=== PATIENT | female | born 2000 | race Caucasian/White ===

== ENCOUNTER 2021-03-20 17:20 | Emergency (ER) | payer OTHER ==
[~2021-03-20] VITALS: Ht 167.6 cm; Wt 95.3 kg
[2021-03-20 17:41] VITALS: BP 122/67
--- NOTE | 2021-03-20 17:48 | NUR ---
20 YEAR OLD FEMALE COMPLAINS OF WORSENING LLQ ABDOMINAL PAIN X 1 WEEK. PAIN 7/10, SHARP, RADIATING TO LEFT LOWER BACK. PT STATES NAUSEA, DENIES VOMITTING/DIARRHEA. PT DENIES PROBLEMS WITH URINATION. IN ED, VSS. ABDOMEN SOFT, NONTENDER. PT CHANGED TO GOWN. ERMD MADE AWARE OF PT STATUS. PMH - HTN NKA
[2021-03-20 18:46] LABS: BASOPHILS # (AUTO) 0.1 K/uL (0.00-0.22); BASOPHILS % (AUTO) 0.7 % (0.0-2.0); EOSINOPHILS # (AUTO) 0.2 K/uL (0-0.4); EOSINOPHILS % (AUTO) 1.7 % (0.0-4.0); HEMATOCRIT 39.6 % (36-48); LYMPHOCYTES % (AUTO) 28.1 % (20.5-51.1); MEAN CORPUSCULAR HEMOGLOBIN 31 pg (27-31); MEAN CORPUSCULAR HGB CONC 36 g/dL (33-37); MONOCYTES # (AUTO) 0.7 K/uL (0.8-1.0); MONOCYTES % (AUTO) 6.4 % (1.7-9.3); NEUTROPHILS # (AUTO) 6.7 K/uL (1.8-7.7); NEUTROPHILS % (AUTO) 63.1 % (42.2-75.2); PLATELET COUNT (AUTO) 272 K/uL (140-450); RED CELL DISTRIBUTION WIDTH 13.3 % (11.6-13.7); WHITE BLOOD COUNT (AUTO) 10.7 K/uL (4.8-10.8)
[2021-03-20 18:47] LABS: APPEARANCE,URINE CLEAR (CLEAR); BILIRUBIN,URINE NEGATIVE (NEGATIVE); BLOOD, URINE NEGATIVE (NEGATIVE); COLOR,URINE YELLOW (YELLOW); LEUKOCYTE ESTERASE ,URINE 1+ (NEGATIVE); NITRITE, URINE NEGATIVE (NEGATIVE); UGLUCOSE 3+ (NEGATIVE)
[2021-03-20 19:04] LABS: RBC,URINE 0-5 /HPF (0-5)
--- NOTE | 2021-03-20 19:04 | NUR ---
REPORT GIVEN TO HARESH WILSON. ALL CARES TRANSFERRED AT THIS TIME.
--- NOTE | 2021-03-20 19:05 | NUR ---
RECEIVED REPORT FROM ARMANDO HUTSON FOR CONTINUITY OF CARE
--- NOTE | 2021-03-20 19:07 | NUR ---
ULTRASOUND AT BEDSIDE
[2021-03-20] MEDS ORDERED: NITR100C7 PO (19:37)
[2021-03-20] MEDS ORDERED: ACET-10509 PO (19:37)
[2021-03-20 20:04] VITALS: BP 122/67
--- NOTE | 2021-03-20 20:04 | NUR ---
Patient discharged with v/s stable. Written and verbal after care instructions given and explained. Patient alert, oriented and verbalized understanding of instructions. Ambulatory with steady gait. All questions addressed prior to discharge. ID band removed. Patient advised to follow up with PMD. Rx of MACROBID, TYLENOL given. Patient educated on indication of medication including possible reaction and side effects. Opportunity to ask questions provided and answered.
== END 2021-03-20 20:04 | disposition home or self-care (01) ==
LOC: MED 17:20
DX: O00.90 Unspecified ectopic pregnancy without intrauterine pregnancy (principal); N39.0 Urinary tract infection, site not specified; R11.2 Nausea with vomiting, unspecified; I10 Essential (primary) hypertension; Z79.899 Other long term (current) drug therapy
CPT/HCPCS: 36415; 76817; 81001; 81025; 84702; 85025; 86900; 86901; 87086; 99284